=== PATIENT | female | born 1995 | race Caucasian/White ===

== ENCOUNTER 2019-01-30 10:07 | Emergency (ER) | payer SELFPAY ==
[2019-01-30 10:21] VITALS: BP 142/93
[2019-01-30] MEDS ORDERED: Ibuprofen 800 MG Tab PO ONE (11:37)
--- NOTE | 2019-01-30 11:39 | EDM.PDOC ---
ED HPI GENERAL MEDICAL PROBLEM - General Chief Complaint: Lower Extremity Injury/Pain Stated Complaint: LEG INJURY 1 WEEK AGO Time Seen by Provider: 01/30/19 11:07 Source of Information: Reports: Patient History Limitations: Reports: No Limitations - History of Present Illness INITIAL COMMENTS - FREE TEXT/NARRATIVE: Patient is a 23-year-old female presents ED complaining of left anterior knee and hutchins pain. Patient states she fell approximately one week ago injuring the affected areas. She states she slipped on ice and fell 2 separate times. Since then the pain has persisted. She has been able to walk on the affected extremity with a limp. States she has difficulty with straining her left leg with worsening pain to the hutchins. She has not been taking anything for the pain. She denies any pain or swelling to the posterior aspect of her leg. She has no history of blood clots. Left Leg Pain Score (Numeric/FACES): 8 - Related Data Allergies Allergy/AdvReac Type Severity Reaction Status Date / Time No Known Allergies Allergy Verified 01/30/19 10:22 Home Meds: Home Meds Control Pills 1 tab PO DAILY 03/31/17 [History] Past Medical History HEENT History: Reports: None Cardiovascular History: Reports: None Respiratory History: Reports: None Gastrointestinal History: Reports: None Genitourinary History: Reports: None COMPENSATION ADMINISTRATOR History: Reports: None Musculoskeletal History: Reports: None Neurological History: Reports: None Psychiatric History: Reports: ADD, Bipolar, Depression Endocrine/Metabolic History: Reports: None Hematologic History: Reports: None Immunologic History: Reports: None Oncologic (Cancer) History: Reports: None Dermatologic History: Reports: None - Infectious Disease History Infectious Disease History: Reports: None - Past Surgical History HEENT Surgical History: Reports: Oral Surgery, Tonsillectomy Social & Family History - Family History Family Medical History: Noncontributory - Tobacco Use Smoking Status *Q: Never Smoker - Caffeine Use Caffeine Use: Reports: Soda - Recreational Drug Use Recreational Drug Use: No Review of Systems - Review of Systems Review Of Systems: See Below Musculoskeletal: Reports: Other (No pain noted with the left hip. Pain is isolated to the left knee, anterior hutchins. Worse with palpation and also straightening her leg.) Skin: Reports: Bruising (Bruising noted to the left anterior knee and also left anterior hutchins.) Neurological: Reports: Difficulty Walking (Secondary to pain), Other (No pain noted to the posterior aspect Ercaf. No pain noted to the left ankle or foot.). Denies: Numbness, Tingling ED EXAM, GENERAL - Physical Exam Exam: See Below Exam Limited By: No Limitations General Appearance: Alert, WD/WN, No Apparent Distress Ears: Hearing Grossly Normal Nose: Normal Inspection Throat/Mouth: Normal Voice, No Airway Compromise Neck: Normal Inspection, Supple Respiratory/Chest: No Respiratory Distress, Lungs Clear, Normal Breath Sounds, No Accessory Muscle Use Cardiovascular: Normal Peripheral Pulses, Regular Rate, Rhythm, No Murmur Peripheral Pulses: 2+: Radial (L), Posterior Tibial (L) Extremities: Other (Bruising noted to the anterior aspect left knee and hutchins. Yellow in color old injury. Pain with palpation of the left anterior knee and chin. No pain noted with palpation of the posterior aspect of the knee and calf. No decreased range of motion of the ankle noted. No pain with palpation of the ankle or foot. Negative Guzman test. Negative Homans sign.) Neurological: Alert, Oriented, CN II-XII Intact, Normal Cognition, No Motor/ Sensory Deficits Psychiatric: Normal Affect, Normal Mood Skin Exam: Warm, Dry, Intact Course - Vital Signs Last Recorded V/S: Last Vital Signs Temp 98.5 F 01/30/19 10:18 Pulse 120 H 01/30/19 10:18 Resp 18 01/30/19 10:18 BP 142/93 H 01/30/19 10:18 Pulse Ox 100 01/30/19 10:18 - Orders/Labs/Meds Orders: Active Orders 24 hr Category Date Time Status DME for Discharge [COMM] Stat Oth 01/30/19 12:21 Ordered Meds: Medications Discontinued Medications Generic Name Dose Route Start Last Admin Trade Name Delvisq PRN Reason Stop Dose Admin Ibuprofen 800 mg 01/30/19 11:37 01/30/19 11:55 Motrin PO 01/30/19 11:38 800 mg ONETIME ONE Administration - Re-Assessments/Exams Free Text/Narrative Re-Assessment/Exam: X-ray of the left knee and hutchins will be obtained. Ordered ibuprofen 800 mg by mouth. Do not suspect patient has a DVT. She has no history of DVTs in the past. Vital signs indicated heart rate 120s. SPO2 is normal. She is on control. She has no pain to the calf with palpation nor any swelling or redness. All pain is located to the anterior aspect of the knee and hutchins. X-ray of the left knee and tib-fib reveal no acute bony abnormalities. Final interpretation is pending. Ordered crutches. 1220 Reassessment, patient's resting comfortably in the ED bed. On reexamination of her left lower extremity she continues to have no pain to the hutchins. Homans sign is negative. All pain is located to the anterior aspect of the knee and also hutchins. Return precautions discussed with patient. She agreed with plan. Discharge instructions as documented. Departure - Departure Time of Disposition: 12:35 Disposition: Home, Self-Care 01 Condition: Good Clinical Impression: Multiple leg contusions Qualifiers: Encounter type: initial encounter Laterality: left Qualified Code(s): S80.12XA - Contusion of left lower leg, initial encounter - Discharge Information Instructions: Crutch Use, Adult, [id number], Contusion Referrals: PCP,None [Primary Care Provider] - Forms: ED Department Discharge Additional Instructions: Suggest being toe-touch only for balance advancing weight as tolerated over the next few days. Utilize crutches as directed. Apply ice to affected area 4 times a day, 30 minutes in duration, do not apply directly on the skin. May take Tylenol and ibuprofen in alternating fashion for pain. Refrain from any activities that cause worsening discomfort. Please follow up at clinic clinic if symptoms persist. Return back to ED if you develop any new or worsening symptoms. - My Orders Last 24 Hours: My Active Orders 01/30/19 12:21 DME for Discharge [COMM] Stat - Assessment/Plan Last 24 Hours: My Active Orders 01/30/19 12:21 DME for Discharge [COMM] Stat
--- NOTE | 2019-01-30 12:29 | CR ---
Left knee: Four views of the left knee were obtained. Comparison: No previous knee exam. Medial and lateral joint compartments are maintained in height. No joint effusion is seen. No fracture or other bony abnormality is seen. Impression: 1. No abnormality is seen on left knee exam. Diagnostic code #1
--- NOTE | 2019-01-30 12:29 | CR ---
Left tibia and fibula: Two views of the left tibia and fibula were obtained. Comparison: No previous study. No fracture or other bony abnormality is seen. Impression: 1. No abnormality is identified on two-view left tibia and fibula study. Diagnostic code #1
== END 2019-01-30 12:40 | disposition home or self-care (01) ==
LOC: JD.ED 10:07
DX: S80.12XA Contusion of left lower leg, initial encounter (principal); W19.XXXA Unspecified fall, initial encounter
CPT/HCPCS: 73564; 73590; 99283; A9270; 99282

== ENCOUNTER 2023-06-13 10:38 | Emergency (ER) | payer MEDICAID, OTHER ==
[2023-06-13] MEDS ORDERED: Sodium Chloride 0.9% 1,000 ML IV STA (11:17)
[2023-06-13] MEDS ORDERED: Ondansetron 4 MG/2 ML SDV IVPUSH ONE (11:17)
[2023-06-13] MEDS ORDERED: HYDROmorphone 0.5 MG/0.5 ML Syringe IVPUSH ONE (11:18)
[2023-06-13] MEDS ORDERED: Sodium Chloride 0.9% 10 ML Syringe FLUSH PRN (11:18)
[2023-06-13 11:43] LABS: BASOPHILS ABSOLUTE AUTO 0.02 K/mm3 (0.01-0.08); BASOPHILS PERCENT AUTO 0.5 % (0.1-1.2); EOSINOPHILS ABSOLUTE AUTO 0.05 K/mm3 (0.04-0.36); EOSINOPHILS PERCENT AUTO 1.2 (0.7-5.8); HEMATOCRIT 38.8 % (34.1-44.9); HEMOGLOBIN 12.8 gm/dl (11.2-15.7); IMMATURE GRAN ABSOLUTE AUTO 0.01 K/mm3 (0.00-0.10); IMMATURE GRAN PERCENT AUTO 0.2 % (<=1.0); LYMPHOCYTES ABSOLUTE AUTO 1.21 K/mm3 (1.18-3.74); LYMPHOCYTES PERCENT AUTO 29.4 % (19.3-51.7); MEAN CORPUSCULAR HEMOGLOBIN 30.5 pg (25.6-32.2); MEAN CORPUSCULAR VOLUME 92.4 fl (79.4-94.8); MEAN PLATELET VOLUME 9.7 fl (9.4-12.3); MONOCYTES PERCENT AUTO 9.7 % (4.7-12.5); NEUTROPHILS ABSOLUTE AUTO 2.42 K/mm3 (1.56-6.13); PLATELET COUNT,PLT 242 K/mm3 (182-369); WHITE BLOOD CELL COUNT,WBC 4.11 K/mm3 (3.98-10.04)
[2023-06-13 11:44] LABS: APPEARANCE,URINE CLOUDY (Clear); BILIRUBIN,URINE 1+ (Negative); COLOR,URINE AMBER (Yellow); GLUCOSE,URINE NEGATIVE (Negative); KETONES,URINE NEGATIVE (Negative); LEUKOCYTE ESTERASE,URINE NEGATIVE (Negative); NITRITE,URINE NEGATIVE (Negative); OCCULT BLOOD,URINE 3+ (Negative); PH,URINE 6.5 (5.0-8.0); PROTEIN,URINE 2+ (Negative)
[2023-06-13 11:53] LABS: RBC,URINE >100 /hpf (0-5); WBC CLUMPS,URINE NOT SEEN /hpf (NOT SEEN)
[2023-06-13 11:54] LABS: BACTERIA,URINE MODERATE /hpf (FEW); MUCUS,URINE MANY /hpf (FEW)
[2023-06-13 12:07] LABS: A/G RATIO 0.9 (1-2); ALBUMIN 3.5 g/dl (3.4-5.0); ANION GAP 8.5 (5-15); BILIRUBIN TOTAL 0.2 mg/dL (0.2-1.0); BUN/CREATININE RATIO 15.7 (14-18); C-REACTIVE PROTEIN 0.7 mg/dL (<1.0); CALCIUM 8.6 mg/dL (8.5-10.1); CREATININE 0.7 mg/dL (0.55-1.02); EST CRCL DRUG DOSING (CG) 92.94 mL/min; POTASSIUM,K 3.5 mEq/L (3.5-5.1); PROTEIN TOTAL,TP 7.5 g/dl (6.4-8.2)
[2023-06-13] MEDS ORDERED: Ketorolac 30 MG/ML SDV IVPUSH ONE (14:13)
[2023-06-13 15:13] VITALS: BP 137/85; PULSE 78
== END 2023-06-13 14:50 | disposition home or self-care (01) ==
LOC: JD.ED 10:38
DX: R10.2 Pelvic and perineal pain (principal); Z88.2 Allergy status to sulfonamides
CPT/HCPCS: 36415; 76830; 80053; 81001; 85025; 86140; 96374; 96375; 99284; J1170; J1885; J2405; J3490; J7030

== ENCOUNTER 2023-06-17 07:58 | Emergency (ER) | payer MEDICAID ==
[2023-06-17] MEDS ORDERED: Prochlorperazine 10 MG in Sodium Chloride 0.9% 50 ML IV ONE (09:00)
[2023-06-17] MEDS ORDERED: Lactated Ringers 1,000 ML IV ONE (09:00)
[2023-06-17] MEDS ORDERED: Ketorolac 15 MG/ML SDV IVPUSH ONE (09:00)
[2023-06-17] MEDS ORDERED: diphenhydrAMINE 50 MG/ML SDV IVPUSH ONE (09:00)
[2023-06-17 12:24] VITALS: BP 119/71; PULSE 74
== END 2023-06-17 11:40 | disposition home or self-care (01) ==
LOC: JD.ED 07:58
DX: R51.9 Headache, unspecified (principal); E66.9 Obesity, unspecified; Z68.36 Body mass index [BMI] 36.0-36.9, adult; Z88.2 Allergy status to sulfonamides; Z86.16 Personal history of COVID-19
CPT/HCPCS: 96361; 96365; 96375; 99283; J0780; J1200; J1885; J3490; J7120; 99284